=== PATIENT | female | born 1985 | race Caucasian/White ===

== ENCOUNTER → 2021-10-04 10:42 | Outpatient (CLI) | payer OTHER, SELFPAY ==
--- NOTE | ~2021-10-04 | US_ITS ---
EXAMINATION: US thyroid DATE: 10/04/2021 10:59 INDICATION: Tender goiter. Palpitations. Thyroiditis. TECHNIQUE: Multiple ultrasound images of the thyroid were obtained. COMPARISON: None. FINDINGS: The right thyroid lobe measures 5.1 x 1.2 x 1.6 cm. The left thyroid lobe measures 4.9 x 1.2 x 2.0 c m. The thyroid demonstrates heterogeneous echogenicity. No discrete nodule. Vascularity is normal. IMPRESSION: 1. 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 Reviewed, dictated and finalized at location A. D STAFF
== END ==
PROVIDERS: Visit Provider Family Medicine
DX: R00.2 Palpitations (principal); E04.9 Nontoxic goiter, unspecified
CPT/HCPCS: 76536

== ENCOUNTER 2023-09-15 08:51 | Outpatient (CLI) | payer OTHER, SELFPAY ==
--- NOTE | 2023-09-15 09:06 | ECHO_ITS ---
Patient Info Name: Brenda Taylor Age: 38 years : 1985 Gender: Female Ht: 70 in Wt: 200 lbs BSA: 2.14 m2 HR: 69 bpm BP: 134 / 87 mmHg Technical Quality: Fair Exam Date: 09/15/2023 9:16 AM Exam Location: Echo Lab Patient Status: Outpatient Admit Date: 09/15/2023 Staff Ordering Physician: Savannah Danielson MD [employer] In[employer]: Paige Thorpe RDCS Attending Provider: Savannah Danielson MD Referring Physician: Jagjit PALOMO; Exam Type: CA echo doppler color flow Study Info Indications - palpitations Complete two-dimensional, color flow and Doppler transthoracic echocardiogram is performed. Summary 1. Complete two-dimensional, color flow and Doppler transthoracic echocardiogram is performed. 2. Left ventricular chamber dimension is normal. 3. Left ventricular systolic function is normal, estimated at 60-65%. 4. The left ventricular diastolic function is normal. 5. E/e' 8 is minimally elevated. 6. There is trace tricuspid valve regurgitation. 7. No pulmonary hypertension, estimated pulmonary arterial systolic pressure is 27 mmHg. 8. There is trace pulmonic regurgitation. Left Ventricle E/e' 8 is minimally elevated. Left ventricular chamber dimension is normal. Left ventricular systolic function is normal, estimated at 60-65%. The left ventricular diastolic function is normal. Right Ventricle Right ventricular chamber dimension is normal. Right ventricular systolic function is normal. Left Atria Left atrial chamber dimension is normal. Right Atria Right atrial chamber dimension is normal. Aortic Valve The aortic valve is trileaflet. There is no aortic valve stenosis. There is no aortic valve regurgitation. Pulmonic Valve There is trace pulmonic regurgitation. Mitral Valve There is no mitral valve stenosis. There is no mitral valve regurgitation. Tricuspid Valve There is trace tricuspid valve regurgitation. No pulmonary hypertension, estimated pulmonary arterial systolic pressure is 27 mmHg. Pericardium/Pleural There is no pericardial effusion. Inferior Vena Cava Normal inferior vena cava with >50% collapse upon inspiration consistent with normal right atrial pressure, 5 mmHg. Aorta The aortic root size at the sinus of Valsalva is normal. Left Ventricular Outflow Tract Name Value Normal LVOT 2D LVOT Diameter 2.0 cm LVOT Doppler LVOT Peak Gradient 5 mmHg LVOT Mean Gradient 3 mmHg LVOT VTI 25 cm LVOT VTI/AV VTI Ratio 1.0 LVOT Stroke Volume 82 ml LVOT CO 17.4 l/min LVOT CI 8.1 l/min/m2 Pulmonic Valve Name Value Normal PV Doppler PV Peak Gradient 4 mmHg Mitral Valve Name Value
--- NOTE | 2023-09-18 11:52 | WPDHOLTEREM ---
Holter/Event Monitor Holter/Event Monitor Date of procedure: 09/18/23 Holter/Event Procedure: 48 Hr Holter Monitor Diagnosis: Palpitations Indications: Palpitations Image/Tracing Quality: Adequate. Total analysis time fo 47 hours and 59 minutes. Findin. Sinus rhythm with an average heart rate of 73 beats per minute. The minimum heart rate was 46 beats per minute. The maximum heart rate was 128 beats per minute. 2. No evidence of atrial fibrillation, SVT, heart block, pauses. 3. There was 1 episode of non-sustained ventricular tachycardia consisting of 5 beats. 4. PAC burden of <0.01%. 5. PVC burden of <0.01%. 6. No symptoms were reported during the monitoring period.
== END 2023-09-15 08:52 | disposition home or self-care (01) ==
LOC: ANHCARD 08:52
PROVIDERS: PCP Family Medicine; Visit Provider Family Medicine
DX: R93.1 Abnormal findings on diagnostic imaging of heart and coronary circulation (principal); I07.1 Rheumatic tricuspid insufficiency; I37.1 Nonrheumatic pulmonary valve insufficiency
CPT/HCPCS: 93225; 93226; 93306